=== PATIENT | female | born 1965 | race Caucasian/White ===

== ENCOUNTER 2020-10-06 09:11 | Outpatient (CLI) | payer OTHER, BC, SELFPAY ==
--- NOTE | ~2020-10-06 | MM_ITS ---
EXAMINATION: MM screening [facility] BI w steve HISTORY: Screening TECHNIQUE: Craniocaudal and mediolateral oblique 3-D tomosynthesis images were obtained and synthetic 2-D images were generated. CAD analysis was submitted and interpreted. COMPARISON: Comparison to multiple prior studies sequentially, with oldest reviewed study dated 02/2015. BREAST PARENCHYMAL COMPOSITION: There are scattered areas of fibroglandular density. FINDINGS: There is no evidence of suspicious mass, calcification, or architectural distortion to sugg est malignancy in either breast. There has been no suspicious interval change. IMPRESSION: 1. No mammographic evidence of malignancy. 2. Recommend routine screening mammography in one year. BI-RADS Category 1: Negative Reviewed, dictated and finalized at location A. SCAPE SUPERVISOR
== END 2020-10-06 09:12 | disposition home or self-care (01) ==
LOC: ANHIMG 09:13
PROVIDERS: PCP Hospitalist; Visit Provider Hospitalist
DX: Z12.31 Encounter for screening mammogram for malignant neoplasm of breast (principal)
CPT/HCPCS: 77063; 77067

== ENCOUNTER 2021-10-08 07:20 | Outpatient (CLI) | payer OTHER, BC, SELFPAY ==
--- NOTE | ~2021-10-08 | MM_ITS ---
EXAMINATION: MM screening [facility] BI w steve HISTORY: Screening TECHNIQUE: Craniocaudal and mediolateral oblique 3-D tomosynthesis images were obtained and synthetic 2-D images were generated. CAD analysis was submitted and interpreted. COMPARISON: Comparison to multiple prior studies sequentially, with oldest reviewed study dated 02/2015. BREAST PARENCHYMAL COMPOSITION: There are scattered areas of fibroglandular density. FINDINGS: There is no evidence of suspicious mass, calcification, or architectural distortion to sugg est malignancy in either breast. There has been no suspicious interval change. IMPRESSION: 1. No mammographic evidence of malignancy. 2. Recommend routine screening mammography in one year. BI-RADS Category 1: Negative Reviewed, dictated and finalized at location A. ER PUNCHER
== END 2021-10-08 07:21 | disposition home or self-care (01) ==
LOC: ANHIMG 07:24
PROVIDERS: PCP Hospitalist; Visit Provider Student in an Organized Health Care Education/Training Program
DX: Z12.31 Encounter for screening mammogram for malignant neoplasm of breast (principal)
CPT/HCPCS: 77063; 77067

== ENCOUNTER 2022-10-11 07:13 | Outpatient (CLI) | payer BC, SELFPAY ==
--- NOTE | ~2022-10-11 | MM_ITS ---
EXAMINATION: MM screening [facility] BI w steve HISTORY: Screening TECHNIQUE: Craniocaudal and mediolateral oblique 3-D tomosynthesis images were obtained and synthetic 2-D images were generated. CAD analysis was submitted and interpreted. COMPARISON: Comparison to multiple prior studies sequentially, with oldest reviewed study dated 07/2016. BREAST PARENCHYMAL COMPOSITION: There are scattered areas of fibroglandular density. FINDINGS: There is no evidence of suspicious mass, calcification, or architectural distortion to sugg est malignancy in either breast. There has been no suspicious interval change. IMPRESSION: 1. No mammographic evidence of malignancy. 2. Recommend routine screening mammography in one year. BI-RADS Category 1: Negative Reviewed, dictated and finalized at location B. [employer]
== END 2022-10-11 07:14 | disposition home or self-care (01) ==
LOC: ANHIMG 07:17
PROVIDERS: PCP Hospitalist; Visit Provider Student in an Organized Health Care Education/Training Program
DX: Z12.31 Encounter for screening mammogram for malignant neoplasm of breast (principal)
CPT/HCPCS: 77063; 77067

== ENCOUNTER 2023-11-04 07:20 | Outpatient (CLI) | payer BC, SELFPAY ==
--- NOTE | ~2023-11-04 | MM_ITS ---
EXAMINATION: MM screening [facility] BI w steve HISTORY: Screening mammogram TECHNIQUE: Craniocaudal and mediolateral oblique 3-D tomosynthesis images were obtained and synthetic 2-D images were generated. CAD analysis was submitted and interpreted. COMPARISON: 10/11/2022, 10/08/2021, 10/06/2020 BREAST PARENCHYMAL COMPOSITION: There are scattered areas of fibroglandular density. FINDINGS: No suspicious mass, calcification, or architectural distortion are identified in either fermin ast to suggest malignancy. There has been no suspicious interval change. IMPRESSION: 1. No mammographic evidence of malignancy. 2. Recommend routine screening mammography in one year. BI-RADS Category 1: Negative Reviewed, dictated and finalized at location A. VERY REPRESENTATIVE
== END 2023-11-04 07:21 | disposition home or self-care (01) ==
LOC: ANHIMG 07:24
PROVIDERS: PCP Hospitalist; Visit Provider Registered Nurse
DX: Z12.31 Encounter for screening mammogram for malignant neoplasm of breast (principal)
CPT/HCPCS: 77063; 77067

== ENCOUNTER 2024-12-14 07:12 | Outpatient (CLI) | payer BC, SELFPAY ==
--- NOTE | ~2024-12-14 | MM_ITS ---
EXAMINATION: MM screening francoise BI w steve HISTORY: Screening TECHNIQUE: Craniocaudal and mediolateral oblique 3-D tomosynthesis images were obtained and synthetic 2-D images were generated. CAD analysis was submitted and interpreted. COMPARISON: Comparison to multiple prior studies sequentially, with oldest reviewed study dated 09/01. BREAST PARENCHYMAL COMPOSITION: Not dense: There are scattered areas of fibroglandular density.. FINDINGS: There is no evidence of suspicious mass, calcification, or architectural distortion to sugg est malignancy in either breast. There has been no suspicious interval change. IMPRESSION: 1. No mammographic evidence of malignancy. 2. Recommend routine screening mammography in one year. BI-RADS Category 1: Negative Reviewed, dictated and finalized at location B. LER
--- OUTSIDE RECORDS SUMMARY | 2024-12-14 07:18 | XMS_ITS | Encounter Summary ---
Author Organization [facility] Address [address] [place] [address] Care Team Providers Care Cook Roast Name Role Phone Fabrice Merino MD Primary Care Provider [phone] Encounter Details Date Type Department Care Team (Late st Contact Info) Description 12/15/2022 Lab Requisition [facility] DermPath Lab [address] [place] [address] Beau Almanza MD [address] [place] [address] Social History Tobacco Use Types Packs/Day Years Used Date Smoking Tobacco: Never Assessed Sex and Gender Information Value Date Recorded Sex Assigned at Not on file Gender Identity Not on file Sexual Orientation Not on file documented as of this encounter Plan of Treatment Not on file documented as of this encounter Procedures Procedure Name Priority Date/Time Associated Diagnosis Comments DERMATOPATHOLOGY Routine 12/14/2022 12:0 0 AM REINSURANCE ANALYST documented in this encounter Results * DERMATOPATHOLOGY (12/14/2022 12:00 AM REINSURANCE ANALYST) Case Report Dermatopathology Report Case: [id number] Authorizing Provider: Beau Almanza MD Collected: 12/14/2022 12:00 AM Ordering Location: [facility] Lab Received: 12/15/2022 04:22 PM Pathologist: Kelly Ordaz MD Specimen: Skin, right hindu 3 10:48 AM REINSURANCE ANALYST DERMATOPATHOLOGY LABORATORY Addendum 1 Grocott's methenamine silver (GMS) stain fails to highlight fungal elements in the available sections. 3 10:48 AM [facility] DERMATOPATHOLOGY LABORATORY Addendum electronically signed by Kelly Ordaz MD on 12/21/2022 at 10:48 AM Final Diagnosis Specimen A. SKIN, right hindu: VACUOLAR INTERFACE DERMATITIS, FOCAL (L30.8) POST-INFLAMMATORY PIGMENT ALTERATION (L81.9) (see microscopic description and comment) 10:48 AM [facility] DERMATOPATHOLOGY LABORATORY Clinical History R/O dermatitis vs SK vs other 10:48 AM [facility] DERMATOPATHOLOGY LABORATORY Gross Description Specimen A: Received is one formalin filled container labeled with the patient's name and designated right hindu. The specimen consists of a shave biopsy measuring 5x3x1 mm. Jar 0. 10:48 AM [facility] DERMATOPATHOLOGY LABORATORY Microscopic Description Specimen A. SKIN, right hindu: There is focal vacuolar alteration along the basal cell layer. Mild intraepidermal basilar atypia is noted. A mild, perivascular lymphocytic infiltrate is observed in the superficial dermis. Eosinophils are not seen. Sections show abundant melanin within melanophages around the superficial vascular plexus. Additional deeper sections were obtained and reviewed. COMMENT: The overall histologic features are focal and subtle, and may may represent a resolving lichenoid dermatitis with reactive squamous atypia; however, an early actinic keratosis cannot be excluded. Clinical correlation is recommended. A GMS stain will be performed and results reported in an addendum. 10:48 AM [facility] DERMATOPATHOLOGY LABORATORY Disclaimer An external and internal positive and negative controls are appropriate for the histochemical, immunohistochemical and immunofluorescence stain(s) in this case (if any), except where stated explicitly. The performance characteristics of the stain(s) cited in this report were developed and its performance characteristic determined by the Dermatopathology Laboratory at [facility], directed by Dr. Melinda Blood. These tests need not be, and therefore are not, approved by the [place] Food and Drug Administration. The tests are used for clinical purposes. Billing Codes Specimen Charges Stain Charges 53271 1 10:48 AM [facility] DERMATOPATHOLOGY LABORATORY Embedded Images 10:48 AM [facility] DERMATOPATHOLOGY LABORATORY Pathology/Cytolog y TISSUE SPECIMEN FROM SKIN / Unknown 12/14/2022 12/15/2022 4:22 PM REINSURANCE ANALYST Beau Almanza MD LAB - PATHOLOGY/CYTO LOGY ORDERABLES DERMATOPATHOLOGY LABORATORY [facility] - Department of Dermatology [address], [address] [phone] documented in this encounter Visit Diagnoses Not on filedocumented in this encounter Care Teams Cook Roast Relationship Specialty Start Date End Date Fabrice Merino MD [address] [place] [address] PCP - General 08/26/08 documented as of this encounter
--- OUTSIDE RECORDS SUMMARY | 2024-12-14 07:18 | XMS_ITS | Patient Health Summary ---
Author Organization [facility] Address [address] [place] [address] Care Team Providers Care Porter Baggage Name Role Phone Fabrice Merino MD Primary Care Provider [phone] Note from [facility],non-owned Affiliates and Associated Physician Practices is amultiple site organization consisting of ambulatory clinics and hospital sitesin [place], [place], [place] and [place]. This disclosure is being madepursuant to the Care Everywhere program and may not contain all information available regarding this patient. Last updated 18.[facility] Social History Tobacco Use Types Packs/Day Years Used Date Smoking Tobacco: Never Assessed Sex and Gender Information Value Date Recorded Sex Assigned at Not on file Gender Identity Not on file Sexual Orientation Not on file Procedures * DERMATOPATHOLOGY(Performed 12/14/2022) * DERMATOPATHOLOGY(Performed 07/08/2016) Results * DERMATOPATHOLOGY (12/14/2022 12:00 AM SPECIMEN TRANSPORTER) Only the most recent of2 resultswithin the time period is included. Case Report Dermatopathology Report Case: [id number] Authorizing Provider: Beau Almanza MD Collected: 12/14/2022 12:00 AM Ordering Location: [facility] DermPath Lab Received: 12/15/2022 04:22 PM Pathologist: Kelly Ordaz MD Specimen: Skin, right judaism 3 10:48 AM SPECIMEN TRANSPORTER DERMATOPATHOLOGY LABORATORY Addendum 1 Grocott's methenamine silver (GMS) stain fails to highlight fungal elements in the available sections. 3 10:48 AM [facility] DERMATOPATHOLOGY LABORATORY Addendum electronically signed by Kelly Ordaz MD on 12/21/2022 at 10:48 AM Final Diagnosis Specimen A. SKIN, right judaism: VACUOLAR INTERFACE DERMATITIS, FOCAL (L30.8) POST-INFLAMMATORY PIGMENT ALTERATION (L81.9) (see microscopic description and comment) 3 10:48 AM [facility] DERMATOPATHOLOGY LABORATORY Clinical History R/O dermatitis vs SK vs other 3 10:48 AM [facility] DERMATOPATHOLOGY LABORATORY Gross Description Specimen A: Received is one formalin filled container labeled with the patient's name and designated right judaism. The specimen consists of a shave biopsy measuring 5x3x1 mm. Jar 0. 3 10:48 AM [facility] DERMATOPATHOLOGY LABORATORY Microscopic Description Specimen A. SKIN, right judaism: There is focal vacuolar alteration along the [...] performed and results reported in an addendum. 3 10:48 AM [facility] DERMATOPATHOLOGY LABORATORY Disclaimer An external and internal positive and negative controls are appropriate for the histochemical, immunohistochemical and immunofluorescence stain(s) in this case (if any), except where stated explicitly. The performance characteristics of the stain(s) cited in this report were developed and its performance characteristic determined by the Dermatopathology Laboratory at [facility], directed by Dr. Melinda Blood. These tests need not be, and therefore are not, approved by the [place] Food and Drug Administration. The tests are used for clinical purposes. Billing Codes Specimen Charges Stain Charges 75719 1 3 10:48 AM [facility] DERMATOPATHOLOGY LABORATORY Embedded Images 3 10:48 AM [facility] DERMATOPATHOLOGY LABORATORY Pathology/Cytolog y TISSUE SPECIMEN FROM SKIN / Unknown 12/14/2022 12/15/2022 4:22 PM SPECIMEN TRANSPORTER Beau Almanza MD LAB - PATHOLOGY/CYTO LOGY ORDERABLES DERMATOPATHOLOGY LABORATORY [facility] - Department of Dermatology [facility] Specialized Medicine [facility] [facility], [address]rd [address] [phone] Care Teams Porter Baggage Relationship Specialty Start Date End Date Fabrice Merino MD [address] [place] [address] PCP - General 08/26/08
--- OUTSIDE RECORDS SUMMARY | 2024-12-14 07:18 | XMS_ITS | Clinical Summary ---
Author Organization [facility] [employer] Address [address] [address] Care Team Providers Care Yarder Name Role Phone Fabrice Merino MD Primary Care Provider [phone] Source Comments [facility] [employer],non-owned Affiliates and Associated Physician Practices is amultiple site organization consisting of ambulatory clinics and hospital sitesin [place], [place], [place] and [place]. This disclosure is being madepursuant to the Care Everywhere program and may not contain all information available regarding this patient. Last updated 18.[facility] [employer] Social History Tobacco Use Types Packs/Day Years Used Date Smoking Tobacco: Never Assessed Sex and Gender Information Value Date Recorded Sex Assigned at Not on file Gender Identity Not on file Sexual Orientation Not on file Plan of Treatment Health Maintenance Due Date Last Done Comments COLOGUARD (AGES 45-75) - COL ON CA SCREENING 1966 COLON MONITORING 1966 COLONOSCOPY - COLON CA SCREENING 1966 CT COLONOGRAPHY - COLON CA SCREENING 1966 Colorectal Cancer Screening 1966 FIT - COLON CA SCREENING 1966 FLEX SIG - COLON CA SCREENING 1966 LIPID TESTING 1966 MAMMOGRAM 1966 PAP SMEAR 1966 HIV SCREENING 1981 HEPATITIS C SCREENING 06/22/1984 DTAP/TDAP/TD VACCINES (1 - Tdap) 1985 HEPATITIS B VACCINE (1 of 3 - 19+ 3-dose series) 1985 PNEUMOCOCCAL VACCINE 50+ (1 of 1 - PCV) 2016 ZOSTER VACCINE (1 of 2) 2016 COVID-19 VACCINE ( - 2023-2 5 season) 2024 INFLUENZA VACCINE (#1) 2024 DEPRESSION SCREENING 10/31/2024 HIB VACCINE Aged Out No longer eligi ble based on patient's age to complete this topic HPV VACCINE Aged Out No longer eligi ble based on patient's age to complete this topic MENINGOCOCCAL (Group B) VACCINE Aged Out No longer eligible based on patient's age to complete this topic MENINGOCOCCAL VACCINE Aged Out No noa omari eligible based on patient's age to complete this topic PNEUMOCOCCAL VACCINE Aged Out No long er eligible based on patient's age to complete this topic Care Teams Yarder Relationship Specialty Start Date End Date Fabrice Merino MD [address] [place] [address] PCP - General 08/26/08
--- OUTSIDE RECORDS SUMMARY | 2024-12-14 07:18 | XMS_ITS | Clinical Summary ---
Author Organization [facility] [place] [address] [facility] Address [address] [place] [address] Care Team Providers Care Welding Manager Name Role Phone Foster Pugh MD Primary Care Provider [phone] Allergies No known active allergies Medications lisinopriL (PRINIVIL,ZESTRI L) 30 mg tablet Take 1 tablet (30 mg total) by mouth daily 90 tablet 3 06/21/2024 5 Active Active Problems Problem Noted Date Diagnosed Date Hypertension, essential 07/28/2020 Overview (07/28/2020): Started on 2017 Assessment & Plan (06/21/2024 4:44 PM CDT): Not well controlled; blood pressure remains elevated; patient reports home blood pressures usually in the 140s Will increase lisinopril to 30 mg daily Assessment & Plan (06/08/2023 3:09 PM CDT): Not well controlled, today blood pressure was elevated; came down on recheck Prior blood pressures have always been normal ranges Encouraged patient to perform ambulatory measurements to continue to monitor; limit caffeine and other stimulants At this time continue lisinopril 20 mg daily, will evaluate need to increase based upon ambulatory measurements Assessment & Plan (06/04/2022 2:35 PM CDT): Stable, well controlled; blood pressure at target today; has been within normal limits for the past year Continue lisinopril 20 mg daily Encouraged continued regular physical activity, and work on weight loss Assessment & Plan (12/04/2021 4:18 PM RECREATIONAL THERAPY TECHNICIAN): Blood pressure at target; no signs or symptoms of orthostatics Continue lisinopril 20 mg daily Assessment & Plan (05/28/2021 4:16 PM CDT): Stable, well controlled with no evidence of orthostatics Will continue lisinopril 20 mg daily Assessment & Plan (12/09/2020 2:45 PM RECREATIONAL THERAPY TECHNICIAN): Well controlled, continue lisinopril Assessment & Plan (07/28/2020 3:39 PM CDT): Stable well controlled today, BP entered Continue with lisinopril Will check BMP for kidney function and potassium at next appointment Class 1 obesity due to exces s calories without serious comorbidity with body mass index (BMI) of 33.0 to 33.9 in adult 07/28/2020 Overview (07/28/2020): Patient reports weight fluctuates up and down Patient has tried multiple diets in the past Assessment & Plan (06/21/2024 4:44 PM CDT): Stable, generally well controlled; patient reports walking approximately 5 miles per day; tries to eat healthy diet limiting portion sizes Recommend continued dietary and activity changes; encouraged patient health benefits of exercise and diet or independent of weight changes Assessment & Plan (06/08/2023 3:09 PM CDT): Weight has increased from 1 year prior; approximately 6 lb Encouraged continued daily exercise; patient reports running daily Encouraged continued work on decreasing caloric intake through dietary changes Assessment & Plan (06/04/2022 2:36 PM CDT): Weight is generally stable, mild decrease in weight over the past year Encouraged patient continue to work on dietary changes, continue with regular physical exercise Assessment & Plan (12/04/2021 4:18 PM RECREATIONAL THERAPY TECHNICIAN): Stable, well controlled; patient has been planned to start working on weight loss together; focus on dietary changes Patient is very active, running most days of the week and lifting weights 2 days per week Assessment & Plan (05/28/2021 4:16 PM CDT): Stable, not well controlled Patient has recent weight gain after vacation Patient plans on making dietary and activity changes Patient is working with her to developed a weight loss plan Assessment & Plan (12/09/2020 2:45 PM RECREATIONAL THERAPY TECHNICIAN): Stable, not much change since last visit -encourage dietary changes to reduce calorie intake -continue with exercise to help control weight and increase lean muscle mass Assessment & Plan (07/28/2020 3:42 PM CDT): Patient reports she is currently on keto diet Discussed with patient portion control and increased activity including resistance training Patient runs 1.5 miles 5 days per week BMI Follow-up includes: nutrition counseling, exercise counseling and education provided. Immunizations Name Administration Dates Next Due Influenza, Unspecified 08/06/2022(Deferr ed: Patient Refused),12/04/2021(Deferred: Patient Refused),12/04/2021(Deferred: Patient Refused),07/01/2021(Deferred: Patient Refused),07/01/2021(Deferred: Patient Refused),10/31/2020(Deferred: Patient Refused),07/28/2020(Deferred: Patient Refused),10/31/2019(Deferred: Patient Refused),10/31/2019(Deferred: Patient Refused) Tdap 07/28/2020 Surgical History Surgery Date Site/Laterality Comments APPENDECTOMY 1977 Family History Medical History Relation Name Comments Suicide Attempts Brother Stomach cancer Father Hypertension Mother Relation Name Status Comments Brother Father Mother Alive Social History Tobacco Use Types Packs/Day Years Used Date Smoking Tobacco: Former Smokeless Tobacco: Never Comments:2009 Alcohol Use Standard Drinks/Week Comments Yes 0 (1 standard drink = 0.6 oz pur e alcohol) socially AUDIT-C Answer Date Recorded Q1: How often do you have a drink containing alc ohol? Patient declined 06/21/2024 Q2: How many drinks containi ng alcohol do you have on a typical day when you are drinking? Patient declined 06/21/2024 Q3: How often do you have si x or more drinks on one occasion? Patient declined 06/21/2024 PHQ-2 Answer Date Recorded PHQ-2 Total Score (If total score is 3 or more points, staff should administer the PHQ-9) 0 06/21/2024 Personal Safety Answer Date Recorded Getting School Help Needed Not on file 10/15 Comments Unknown Sex and Gender Information Value Date Recorded Sex Assigned at Not on file Legal Sex Female 12:06 PM RECREATIONAL THERAPY TECHNICIAN Gender Identity Not on file Sexual Orientation Not on file Obstetrics History Last Filed Vital Signs Vital Sign Reading Time Taken Comments Blood Pressure 156/103 08/20/2024 6:52 PM CDT Pulse 85 08/20/2024 6:52 PM CDT Temperature 36.8 C (98.2 F) 08/20/2024 6:52 PM CDT Respiratory Rate 20 08/20/2024 6:52 PM CDT Oxygen Saturation 99% 08/20/2024 6:52 PM CDT Inhaled Oxygen Concentration - - Weight 94.8 kg (209 lb) 08/20/2024 6:52 PM CDT Height 165.1 cm (5' 5 ) 08/20/2024 6:52 PM CDT Body Mass Index 34.78 08/20/2024 6:52 PM CDT Plan of Treatment Health Maintenance Due Date Last Done Comments Zoster Vaccine (1 of 2) 2016 Cervical Cancer Screening 06/05/2021 06/05/2020 Breast Cancer Screening-Mammogram 11/04/2024 11/04/2023, 11/04/2023, 10/11/2022, Additional history exists Depression Screening 06/21/2025 06/21/2024, 06/08/2023, 06/04/2022, Additional history exists Regular Well Visit/Exam 18-64 06/21/2025 06/21/2024 Colon Cancer Screening-Colonoscopy Discontinued 09/12/2017 DTaP/Tdap/Td Vaccine Discontinued 07/28/2020 Hepatitis B Screening Completed 06/25/2024 Hepatitis C Screening Completed 06/25/2024 Influenza Vaccine Discontinued Pneumococcal vaccine <65 Aged Out No longer eligible based on patient's age to complete this topic Procedures Procedure Name Priority Date/Time Associated Diagnosis Comments HEPATITIS C ANTIBODY Routine 06/25/2024 10:54 AM CDT Encounter for hepatitis C screening test for low risk patient SCREENING MAMMOGRAM 2D BILATERAL Schedule Routine, Read Routine (OP Routine) 11/04/2023 GENITAL FLUID PAP SMEAR, THIN PREP AND HPV Routine 06/05/2020 COLONOSCOPY Routine 09/12/2017 from Last 3 Months or Most Recently Relevant to Health Maintenance Results * Hepatitis C antibody Blood (06/25/2024 10:54 AM CDT) Hep C Ab Nonreactive Nonreactive Comment: Interpretive Data Nonreactive: Antibodies to HCV not detected. Does NOT exclude the possibility of recent exposure to HCV. Equivocal: Equivocal for HCV antibodies. Supplemental molecular testing will be automatically performed to determine infection status in accordance with current CDC screening recommendations. Reactive: Positive for HCV antibodies. This may represent current or past HCV infection. Supplemental molecular testing will be automatically performed to determine current infection status in accordance with current CDC screening recommendations. Interpretive data was last revised on 2020. Testing performed by: [facility], [address] [place] [address]., [id number] Blood 06/25/2024 10:5 4 AM CDT 06/25/2024 7:08 PM CDT Foster Pugh MD LAB MICROBIOLOGY - GENERA L ORDERABLES Final Result [facility]) [address] [facility] [place] [address] * Screening Mammogram 2D Bilateral (11/04/2023) Anatomical Region Laterality Modality Breast Bilateral Mammography Historical Provider IMG MAMMO PROCEDURES Damari l Result * Genital fluid pap smear, thin prep and HPV (06/05/2020) 06/05/2020 Historical Josefa [facility] LAB CYTOLOGY ORDERABLES F inal Result * Colonoscopy (09/12/2017) Anatomical Region Laterality Modality Other Historical Provider ENDOSCOPY PROCEDURES Edit ed Result - Final from Last 3 Months or Most Recently Relevant to Health Maintenance [place] Care Teams Welding Manager Relationship Specialty Start Date End [place] [address] PCP - General Family Medicine 07/28/20
--- OUTSIDE RECORDS SUMMARY | 2024-12-14 07:18 | XMS_ITS | Referral Summary ---
Author Organization [facility] Address [address] [place] [address] Care Team Providers Care Electric Meter Repairer Apprentice Name Role Phone Fabrice Merino MD Primary Care Provider [phone] Source Comments [facility],non-owned Affiliates and Associated Physician Practices is amultiple site organization consisting of ambulatory clinics and hospital sitesin [place], [place], [place] and [place]. This disclosure is being madepursuant to the Care Everywhere program and may not contain all information available regarding this patient. Last updated 18.[facility] Social History Tobacco Use Types Packs/Day Years Used Date Smoking Tobacco: Never Assessed Sex and Gender Information Value Date Recorded Sex Assigned at Not on file Gender Identity Not on file Sexual Orientation Not on file Plan of Treatment Not on file Care Teams Electric Meter Repairer Apprentice Relationship Specialty Start Date End Date Fabrice Merino MD [address] [place] [address] PCP - General 08/26/08
--- OUTSIDE RECORDS SUMMARY | 2024-12-14 07:18 | XMS_ITS | Referral Summary ---
Author Organization [facility] Address [address] [place] [address] Care Team Providers Care Application Development Intern Name Role Phone Foster Pugh MD Primary Care Provider [phone] Allergies No known active allergies Medications lisinopriL [...] loss Assessment & Plan (12/04/2021 4:18 PM FLOOR AND WALL APPLIER LIQUID): Blood pressure at target; no signs or symptoms of orthostatics Continue lisinopril 20 mg daily Assessment & Plan (05/28/2021 4:16 PM CDT): Stable, well controlled with no evidence of orthostatics Will continue lisinopril 20 mg daily Assessment & Plan (12/09/2020 2:45 PM FLOOR AND WALL APPLIER LIQUID): Well controlled, continue lisinopril Assessment & Plan [...] exercise Assessment & Plan (12/04/2021 4:18 PM FLOOR AND WALL APPLIER LIQUID): Stable, well controlled; patient has been planned [...] plan Assessment & Plan (12/09/2020 2:45 PM FLOOR AND WALL APPLIER LIQUID): Stable, not much change since last visit [...] Refused),10/31/2019(Deferred: Patient Refused),10/31/2019(Deferred: Patient Refused) Tdap 07/28/2020 Social History Tobacco Use Types Packs/Day Years [...] on file Legal Sex Female 12:06 PM FLOOR AND WALL APPLIER LIQUID Gender Identity Not on file Sexual Orientation Not on file Last Filed Vital Signs Vital Sign Reading [...] 08/20/2024 6:52 PM CDT Plan of Treatment Not on file Procedures Procedure Name Priority Date/Time Associated Diagnosis [...] last revised on 2020. Testing performed by: [facility] [address] [place] [address], [place]., [address] Blood 06/25/2024 10:5 4 AM CDT 06/25/2024 7:08 PM CDT Foster Pugh MD LAB MICROBIOLOGY - GENERA L ORDERABLES Final Result [facility] Department of Laboratories [place] [id number] * Screening Mammogram 2D Bilateral (11/04/2023) Anatomical Region Laterality Modality Breast Bilateral Mammography Historical Provider IMG MAMMO PROCEDURES Damari l Result * Genital fluid pap smear, thin prep and HPV (06/05/2020) 06/05/2020 Historical Provider LAB CYTOLOGY ORDERABLES F inal Result * Colonoscopy (09/12/2017) Anatomical Region Laterality Modality Other Historical Provider ENDOSCOPY PROCEDURES Edit ed Result - Final from Last 3 Months or Most Recently Relevant to Health Maintenance Insurance [employer] [facility] Care Teams Application Development Intern Relationship Specialty Start Date End Date Foster Pugh MD [address] [place] [address] PCP - General Family Medicine 07/28/20
== END 2024-12-14 07:13 | disposition home or self-care (01) ==
LOC: ANHIMG 07:14
PROVIDERS: PCP Hospitalist; Visit Provider Nurse Practitioner Family
DX: Z12.31 Encounter for screening mammogram for malignant neoplasm of breast (principal)
CPT/HCPCS: 77063; 77067

== ENCOUNTER 2025-08-23 10:00 | Outpatient (CLI) | payer OTHER, SELFPAY ==
--- NOTE | ~2025-08-23 | US_ITS ---
Clinical history:R79.89 EXAM:Ultrasound thyroid TECHNIQUE:Multiple static grayscale images and color Doppler images were obtained of the thyroid gland. Comparisons:None FINDINGS: Right thyroid lobe measures 5.0 x 2.0 x 2.1 cm and is heterogeneous. Prominent vascular flow throughout the thyroid gland. Left thyroid lobe measures 4.1 x 1.5 x 1.6 cm and is heterogeneous. Isthmus measures 0.2 cm and is heterogeneous. There are right thyroid nodules, the largest measures 1.0 x 0.7 x 0.7 cm and is hypoechoic and solid. TR 4. There are left thyroid nodules, the largest measures 1.4 x 0.6 x 0.6 cm and is solid and hypoechoic. TR 4. IMPRESSION: 1. Thyroid gland is heterogeneous with prominent vascular flow. Consider thyroiditis. Consider a thyroid scan to assess for a cold nodule. 2. There are right thyroid nodules, the largest measures 1.0 x 0.7 x 0.7 cm and is hypoechoic and solid. TR 4. A follow-up thyroid ultrasound in 6 months is recommended. 3. There are left thyroid nodules, vikas largest measures 1.4 x 0.6 x 0.6 cm and is solid and hypoechoic. TR 4. A follow-up thyroid ultrasound in 6 months is recommended. Reviewed, dictated and finalized at location Q. IMPRESSION: 1. Thyroid gland is heterogeneous with prominent vascular flow. Consider thyroi ditis. Consider a thyroid scan to assess for a cold nodule. 2. There are right thyroid nodules, the largest measures 1.0 x 0.7 x 0.7 cm and is hypoechoic and solid. TR 4. A follow-up thyroid ultrasound in 6 months is r ecommended. 3. There are left thyroid nodules, vikas largest measures 1.4 x 0.6 x 0.6 cm and is solid and hypoechoic. TR 4. A follow-up thyroid ultrasound in 6 months is re commended.
== END 2025-08-23 10:01 | disposition home or self-care (01) ==
PROVIDERS: PCP Nurse Practitioner Adult Health; Visit Provider Nurse Practitioner Adult Health
DX: E07.89 Other specified disorders of thyroid (principal); E04.2 Nontoxic multinodular goiter; R79.89 Other specified abnormal findings of blood chemistry
CPT/HCPCS: 76536

== ENCOUNTER 2025-09-03 13:22 | Outpatient (CLI) | payer OTHER, SELFPAY ==
--- NOTE | ~2025-09-03 | NM_ITS ---
EXAMINATION: NM thyroid scan w uptake DATE: 09/04/2025 14:05 INDICATION: Abnormal result of thyroid function studies COMPARISON: Ultrasound dated 08/23/2025 TECHNIQUE: 364 microcuries I-123 was administered orally in capsule form. Scintigraphic images of the thyroid gland were obtained at 24 hours. Thyroid uptake was calculated by the technologist. FINDINGS: The thyroid uptake is 18% (normal 10-30%), with the right lobe measuring 11% uptake and the left 7%. There is no focal area of decreased or increased activity to suggest hypofunctioning or hyperfunctioning nodule. IMPRESSION: 1. Normal thyroid scintigraphy and 24-hour iodine uptake. Reviewed, dictated and finalized at location A. BUSTER HELPER
--- OUTSIDE RECORDS SUMMARY | 2025-09-03 14:57 | XMS_ITS | Clinical Summary ---
Author Organization [facility] Address [address] [place] [address] Care Team Providers Care Laundry Superintendent Name Role Phone Fabrice Merino MD Primary Care Provider [phone] Source Comments [facility] [employer],non-owned Affiliates and Associated Physician Practices is amultiple site organization consisting of ambulatory clinics and hospital sitesin [place], [place], [place] and [place]. This disclosure is being madepursuant to the Care Everywhere program and may not contain all information available regarding this patient. 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 Gender Identity Not on file Sexual Orientation [...] SCREENING 1966 LIPID TESTING 1966 MAMMOGRAM 1966 HIV SCREENING 1981 HEPATITIS C SCREENING 06/22/1984 DTAP/TDAP/TD VACCINES (1 - Tdap) 1985 HEPATITIS B VACCINE (1 of 3 - 19+ 3-dose series) 1985 PAP SMEAR 1987 PNEUMOCOCCAL VACCINE 50+ (1 of 1 - PCV) 2016 ZOSTER VACCINE (1 of 2) 2016 DEPRESSION SCREENING 10/31/2024 COVID-19 VACCINE (1 - 2023-2 5 season) 2025 INFLUENZA VACCINE (#1) 2025 HIB VACCINE Aged Out No longer eligi ble based on patient's age to complete this topic HPV VACCINE Aged Out No longer eligi ble based on patient's age to complete this topic MENINGOCOCCAL (Group B) VACC INE SHARED DECISION-MAKING Aged Out No longer eligibl e based on patient's age to complete this topic MENINGOCOCCAL GROUPS A/C/Y/W VACCINE Aged Out No longer eligible b ased on patient's age to complete this topic Insurance [facility] Care Teams Laundry Superintendent Relationship Specialty Start Date End Date Fabrice Merino MD [address] [place] [address] PCP - General 08/26/08
--- OUTSIDE RECORDS SUMMARY | 2025-09-03 14:57 | XMS_ITS | Clinical Summary ---
Author Organization [address] Address [address] [place] [address] Care Team Providers Care Egg Buyer Name Role Phone Foster Pugh MD Primary Care Provider [phone] Allergies No known active allergies Medications lisinopriL (PRINIVIL,ZESTRI L) 30 mg tablet Take 1 tablet (30 mg total) by mouth daily 90 tablet 3 05/07/2025 6 Active hydroCHLOROthiaz yohan 12.5 mg tablet Take 1 tablet/caps ule (12.5 mg total) by mouth daily 90 tablet 4 06/26/2025 6 Active Active Problems Problem Noted Date Diagnosed Date Hypertension, essential 07/28/2020 Overview (07/28/2020): Started on 2017 Assessment & Plan (07/07/2025 9:24 PM CDT): Stable, well controlled, blood pressure at goal; no chest pain pressure orthostatics Continue hydrochlorothiazide 12.5 mg daily, lisinopril 30 mg daily Assessment & Plan (06/21/2024 4:44 PM CDT): [...] loss Assessment & Plan (12/04/2021 4:18 PM COMPUTATIONAL MATHEMATICIAN): Blood pressure at target; no signs or symptoms of orthostatics Continue lisinopril 20 mg daily Assessment & Plan (05/28/2021 4:16 PM CDT): Stable, well controlled with no evidence of orthostatics Will continue lisinopril 20 mg daily Assessment & Plan (12/09/2020 2:45 PM COMPUTATIONAL MATHEMATICIAN): Well controlled, continue lisinopril Assessment & Plan [...] diets in the past Assessment & Plan (07/07/2025 9:24 PM CDT): Stable, no major changes, patient has downtrending way, has been increasing physical activity, making dietary changes to reduce caloric intake Assessment & Plan (06/21/2024 4:44 PM CDT): [...] exercise Assessment & Plan (12/04/2021 4:18 PM COMPUTATIONAL MATHEMATICIAN): Stable, well controlled; patient has been planned [...] plan Assessment & Plan (12/09/2020 2:45 PM COMPUTATIONAL MATHEMATICIAN): Stable, not much change since last visit [...] nutrition counseling, exercise counseling and education provided. Encounters Date Type Department Care Team Description 07/24/2025 Telephone [facility] [address] [address] Foster Pugh MD Medical Question/Brigitte barrios 07/18/2025 Telephone [facility] [address] [phone] Foster Pugh MD 06/26/2025 4:00 PM CDT Office Visit [facility] [address] [place] [phone] Foster Pugh MD Hypertension, essential (Primary Dx); Class 1 obesity due to excess calories without serious comorbidity with body mass index (BMI) of 33.0 to 33.9 in adult 06/19/2025 Telephone [facility] [address] [place] [phone] Foster Pugh MD Labs from Last 3 Months Immunizations Immunization Administration Dates Next Due Influenza, Unspecified 08/06/2022(Deferr [...] Never Comments:2009 Alcohol Use Standard Drinks/Week Comments Defer 0 (1 standard drink = 0.6 oz pur e alcohol) socially PHQ-2 Answer Date Recorded PHQ-2 Total Score (If total score is 3 or more points, staff should administer the PHQ-9) 0 06/26/2025 AUDIT-C Answer Date Recorded Q1: How often do you have a drink containing alc ohol? Patient declined 06/26/2025 Q2: How many drinks containi ng alcohol do you have on a typical day when you are drinking? Patient declined 06/26/2025 Q3: How often do you have si x or more drinks on one occasion? Patient declined 06/26/2025 Comments Unknown Sex and Gender Information Value Date Recorded Sex Assigned at Not on file Legal Sex Female 12:06 PM COMPUTATIONAL MATHEMATICIAN Gender Identity Not on file Sexual Orientation Not on file Last Filed Vital Signs Vital Sign Reading Time Taken Comments Blood Pressure 140/86 06/26/2025 4:22 PM CDT Pulse 70 06/26/2025 3:59 PM CDT Temperature 36.7 C (98 F) 06/26/2025 3:59 PM CDT Respiratory Rate 18 06/26/2025 3:59 PM CDT Oxygen Saturation 98% 06/26/2025 3:59 PM CDT Inhaled Oxygen Concentration - - Weight 93.4 kg (206 lb) 06/26/2025 3:59 PM CDT Height 163.8 cm (5' 4.5) 06/26/2025 3:59 PM CDT Body Mass Index 34.81 06/26/2025 3:59 PM CDT Plan of Treatment Health Maintenance Due Date Last Done Comments Hepatitis B Screening 1984 Zoster Vaccine (1 of 2) 2016 Cervical Cancer Screening 06/05/2021 06/05/2020 Regular Well Visit/Exam 18-64 06/21/2025 06/21/2024 Breast Cancer Screening-Mammogram 12/14/2025 12/14/2024, 11/04/2023, 11/04/2023, Additional history exists Depression Screening 06/26/2026 06/26/2025, 06/21/2024, 06/08/2023, Additional history exists Colon Cancer Screening-Colonoscopy Discontinued 09/12/2017 DTaP/Tdap/Td Vaccine Discontinued 07/28/2020 Hepatitis C Screening Completed 06/25/2024 Influenza Vaccine Discontinued Pneumococcal vaccine <65 Aged Out No longer eligible based on patient's age to complete this topic Procedures Procedure Name Priority Date/Time Associated Diagnosis Comments SCREENING MAMMOGRAM BILATERAL W BRADY Schedule Routine, Read Routine (OP Routine) 12/14/2024 7:51 AM COMPUTATIONAL MATHEMATICIAN HEPATITIS C ANTIBODY Routine 06/25/2024 10:54 AM CDT Encounter for hepatitis C screening test for low risk patient GENITAL FLUID PAP SMEAR, THIN PREP AND HPV Routine 06/05/2020 COLONOSCOPY Routine 09/12/2017 from Last 3 Months or Most Recently Relevant to Health Maintenance Results * Screening Mammogram Bilateral W Brady (12/14/2024 7:51 AM COMPUTATIONAL MATHEMATICIAN) Anatomical Region Laterality Modality Breast Bilateral Mammography 12/14/2024 7:51 AM COMPUTATIONAL MATHEMATICIAN Historical Provider IMG MAMMO PROCEDURES Damari l Result * Hepatitis C antibody Blood (06/25/2024 10:54 [...] last revised on 2020. Testing performed by: [facility], [address] [place] [address]., [facility] Blood 06/25/2024 10:5 4 AM CDT 06/25/2024 7:08 PM CDT Foster Pugh MD LAB MICROBIOLOGY - GENERA L ORDERABLES Final Result Performing Organization Address City/State/[facility] Co de Phone Number [facility] [place] [address] [facility] Department [place] [address] * Genital fluid pap smear, thin prep and HPV (06/05/2020) 06/05/2020 Historical Provider LAB CYTOLOGY ORDERABLES F inal Result * Colonoscopy (09/12/2017) Anatomical Region Laterality Modality Other Historical Provider ENDOSCOPY PROCEDURES Edit ed Result - Final from Last 3 Months or Most Recently Relevant to Health Maintenance Insurance [employer] Care Teams Egg Buyer Relationship Specialty Start Date End Date [place] [address] PCP - General Family Medicine 07/28/20
--- OUTSIDE RECORDS SUMMARY | 2025-09-03 14:57 | XMS_ITS | Encounter Summary ---
Author Organization [facility] Address [address] [place] [address] Care Team Providers Care Sheet Metal Shop Supervisor Name Role Phone Fabrice Merino MD Primary Care Provider [phone] Encounter Details Date Type Department Care Team (Late st Contact Info) Description 12/15/2022 Lab Requisition [facility] Lab [address] [place] [address] Beau Almanza MD [address] [place] [address] Social History Tobacco Use Types Packs/Day Years Used Date Smoking Tobacco: Never Assessed Comments Unknown Sex and Gender Information Value Date Recorded Sex Assigned at Not on file Legal Sex Female 5:52 PM ROCK CONTRACTOR Gender Identity Not on file Sexual Orientation Not on file documented as of this encounter Plan of Treatment Not on file documented as of this encounter Procedures Procedure Name Priority Date/Time Associated Diagnosis Comments DERMATOPATHOLOGY Routine 12/14/2022 12:0 0 AM ROCK CONTRACTOR documented in this encounter Results * DERMATOPATHOLOGY (12/14/2022 12:00 AM ROCK CONTRACTOR) Case Report Dermatopathology Report Case: [id number] Authorizing Provider: Beau Almanza MD Collected: 12/14/2022 12:00 AM Ordering Location: [facility] Received: 12/15/2022 04:22 PM Pathologist: Kelly Ordaz MD Specimen: Skin, right restoration 3 10:48 AM ROCK CONTRACTOR DERMATOPATHOLOGY LABORATORY Addendum 1 Grocott's methenamine silver (GMS) stain fails to highlight fungal elements in the available sections. 3 10:48 AM ROCK CONTRACTOR DERMATOPATHOLOGY LABORATORY Addendum electronically signed by Kelly Ordaz MD on 12/21/2022 at 1048 ROCK CONTRACTOR Final Diagnosis Specimen A. SKIN, right restoration: VACUOLAR INTERFACE DERMATITIS, FOCAL (L30.8) POST-INFLAMMATORY PIGMENT ALTERATION (L81.9) (see microscopic description and comment) 3 10:48 AM [facility] DERMATOPATHOLOGY [facility]ORATORY at 1527 ROCK CONTRACTOR Clinical History R/O dermatitis vs SK vs other 3 10:48 AM [facility] DERMATOPATHOLOGY [facility]ORAT[facility] Gross Description Specimen A: Received is one formalin filled container labeled with the patient's name and designated right restoration. The specimen consists of a shave biopsy measuring 5x3x1 mm. Jar 0. 10:48 AM [facility] DERMATOPATHOLOGY LABORATORY Microscopic Description Specimen A. SKIN, right restoration: There is focal vacuolar alteration along the [...] results reported in an addendum. 10:48 AM [facility] DERMATOPATHOLOGY [facility]ORATORY Disclaimer An external and internal positive and negative controls are appropriate for the histochemical, immunohistochemical and immunofluorescence stain(s) in this case (if any), except where stated explicitly. The performance characteristics of the stain(s) cited in this report were developed and its performance characteristic determined by the Dermatopathology Laboratory at [facility], directed by Dr. Melinda Blood. These tests need not be, and therefore are not, approved by the [place] Food and Drug Administration. The tests are used for clinical purposes. Billing Codes Specimen Charges Stain Charges 45262 1 10:48 AM [facility] DERMATOPATHOLOGY [facility]OR[facility] Embedded Images 10:48 AM [facility] DERMATOPATH[facility]OR[facility] Pathology/Cytolog y TISSUE SPECIMEN FROM SKIN / Unknown 12/14/2022 12/15/2022 4:22 PM ROCK CONTRACTOR us Beau Almanza MD LAB - PATHOLOGY/CYTOLOGY ORD ERABLES Edited Result - Final DERMATOPATHOLOGY LABORATORY [facility] - Department of Dermatology [facility] Medicine [address] [place] [address], [address] [phone] documented in this encounter Visit Diagnoses Not on filedocumented in this encounter Care Teams Sheet Metal Shop Supervisor Relationship Specialty Start Date End Date Fabrice Merino MD [address] [place] [address] PCP - General 08/26/08 documented as of this encounter
== END 2025-09-03 13:23 | disposition home or self-care (01) ==
PROVIDERS: PCP Nurse Practitioner Adult Health; Visit Provider Nurse Practitioner Adult Health
DX: R94.6 Abnormal results of thyroid function studies (principal)
CPT/HCPCS: 78014; A9516